=== PATIENT | female | born 1965 ===

== ENCOUNTER 2018-05-31 12:09 | Inpatient (IN) ==
[2018-05-31] MEDS ORDERED: PROMETHAZINE 25 MG TABLET PO PRN (12:23)
[2018-05-31] MEDS ORDERED: MAGNESIUM HYDROXIDE SUSP 30 ML UDCUP PO PRN (12:23)
[2018-05-31] MEDS ORDERED: ONDANSETRON 4 MG/2 ML VIAL IV PRN (12:23)
[2018-05-31] MEDS ORDERED: ZALEPLON 5 MG CAPSULE PO PRN (12:23)
[2018-05-31 13:59] LABS: Basophils % 0.2 % (0.0-0.8); Eosinophils % 0.9 % (0.00-10.9); Hemoglobin 13.1 GM/DL (12.0-16.0); Immature Granulocytes % 0.2 %; Immature Granulocytes Absolute 0.01 #; Lymphocytes # 1.7 10*3/uL (1.4-4.0); Lymphocytes % 38.4 % (21.3-54.2); Mean Corpuscular HGB Conc 34.5 GM/DL (32-36); Mean Corpuscular Hemoglobin 30 PG (27-34); Mean Corpuscular Volume 87.8 FL (87-102); Mean Platelet Volume 9.2 FL (9.6-12.0); Monocytes # 0.3 10*3/uL (0.11-0.8); Monocytes % 7.1 % (1.7-12.7); Neutrophils # 2.4 10*3/uL (1.4-7.4); Neutrophils % 53.2 % (38.7-73.9); Platelet Count 279 T/CUMM (130-400); Red Blood Count 4.33 MC/CUMM (3.8-5.5); Red Cell Distribution Width 12.6 % (9.3-17.3); White Blood Count 4.5 T/CUMM (4-12)
[2018-05-31 14:13] LABS: PT Patient Result 10.5 SECS
[2018-05-31 14:28] LABS: Albumin 3.4 G/DL (3.4-5.0); Bilirubin,Total 1.5 MG/DL (0.2-1.0); Calcium 8.7 MG/DL (8.5-10.1); Osmolality,Calculated 275.5 MOS/KG (273-304); Potassium 3.1 MMOL/L (3.5-5.1); Total Protein 6.9 G/DL (6.4-8.3)
[2018-05-31 16:42] LABS: Apearance,Urine CLEAR (Clear); Bilirubin,Urine Negative (Negative); Blood, Urine Negative (Negative); Glucose,Urine (UA) Negative (Negative); Ketones,Urine Negative (Negative); Nitrite,Urine Negative (Negative); Protein,Urine Negative; Squamous Epithelial Cell,Urine Occasional /HPF (0-10); Urine Color Straw (Yellow); Urine Specific Gravity 1.014 (1.001-1.035); Urine Urobilinogen < 2.0 EU/DL (0.2-1.0); WBC,Urine 2 /HPF (0-6)
[2018-05-31] MEDS: ACETAMINOPHEN 325 MG TABLET PO PRN (17:06)
[2018-05-31] MEDS: DEXTROSE 5% LACTATED RINGERS 1,000 ML IV SCH (17:06)
[2018-05-31] MEDS: MIRTAZAPINE 15 MG TABLET PO SCH (22:16)
[2018-05-31] MEDS: PANTOPRAZOLE 40 MG VIAL IV SCH (22:16)
[2018-06-01] MEDS: DEXTROSE 5% LACTATED RINGERS 1,000 ML IV SCH ×4 (01:23→22:15)
[2018-06-01] MEDS: POTASSIUM CHLORIDE RIDER 10 MEQ in PREMIX 1 EACH IV SCH ×4 (07:17→13:17)
[2018-06-01] MEDS ORDERED: GLUCAGON 1 MG VIAL IM PRN ×2 (07:48→07:51)
[2018-06-01] MEDS ORDERED: DEXTROSE 50% 25 GM/50 ML VIAL IV PRN ×2 (07:48→07:51)
[2018-06-01] MEDS: LISINOPRIL 10 MG TABLET PO SCH (09:57)
[2018-06-01] MEDS: PANTOPRAZOLE 40 MG VIAL IV SCH ×2 (09:57→22:13)
[2018-06-01] MEDS ORDERED: LIDOCAINE 100 MG/5 ML SYRINGE ONE (10:00)
[2018-06-01] MEDS ORDERED: PROPOFOL 200 MG/20 ML VIAL IV ONE (10:00)
[2018-06-01] MEDS ORDERED: INSULIN LISPRO 100 UNIT/ML SUBCUT SCH (11:30)
[2018-06-01] MEDS: INSULIN LISPRO 100 UNIT/ML SUBCUT SCH ×3 (12:55→20:58)
[2018-06-01] MEDS: MIRTAZAPINE 15 MG TABLET PO SCH (22:13)
[2018-06-02 05:08] LABS: Free T4 (Free Thyroxine) 1.41 NG/DL (0.76-1.46); Thyroid Stimulating Hormone 1.05 uIU/ml (0.358-3.74)
[2018-06-02 08:35] LABS: Basophils % 0.2 % (0.0-0.8); Eosinophils # 0.1 10*3/uL (0.0-0.87); Eosinophils % 1.5 % (0.00-10.9); Hematocrit 34.5 VOL% (35.7-47.0); Hemoglobin 11.8 GM/DL (12.0-16.0); Immature Granulocytes % 0.2 %; Immature Granulocytes Absolute 0.01 #; Lymphocytes # 1.6 10*3/uL (1.4-4.0); Lymphocytes % 35.3 % (21.3-54.2); Mean Corpuscular HGB Conc 34.2 GM/DL (32-36); Mean Corpuscular Hemoglobin 30 PG (27-34); Mean Corpuscular Volume 88.5 FL (87-102); Mean Platelet Volume 9.6 FL (9.6-12.0); Monocytes # 0.3 10*3/uL (0.11-0.8); Monocytes % 7.1 % (1.7-12.7); Neutrophils # 2.6 10*3/uL (1.4-7.4); Neutrophils % 55.7 % (38.7-73.9); Platelet Count 229 T/CUMM (130-400); Red Cell Distribution Width 12.6 % (9.3-17.3); White Blood Count 4.7 T/CUMM (4-12)
[2018-06-02 08:54] LABS: Calcium 8.4 MG/DL (8.5-10.1); Osmolality,Calculated 284.8 MOS/KG (273-304); Potassium 4.2 MMOL/L (3.5-5.1)
[2018-06-02] MEDS ORDERED: MAGNESIUM SULF RIDER 2 GM in PREMIX 1 EACH IV ONE (09:08)
[2018-06-02] MEDS: INSULIN LISPRO 100 UNIT/ML SUBCUT SCH ×4 (11:34→21:22)
[2018-06-02] MEDS: PANTOPRAZOLE 40 MG VIAL IV SCH ×2 (11:35→21:18)
[2018-06-02] MEDS: DEXTROSE 5% LACTATED RINGERS 1,000 ML IV SCH ×3 (12:44→21:17)
[2018-06-02] MEDS ORDERED: DEXTROSE 50% 25 GM/50 ML VIAL IV PRN (12:51)
[2018-06-02] MEDS ORDERED: GLUCAGON 1 MG VIAL IM PRN (12:51)
[2018-06-02] MEDS: LISINOPRIL 10 MG TABLET PO SCH ×2 (12:53→21:18)
[2018-06-02 16:49] LABS: Apearance,Urine CLEAR (Clear); Bacteria,Urine Occasional /HPF (Few); Bilirubin,Urine Negative (Negative); Blood, Urine Negative (Negative); Glucose,Urine (UA) Negative (Negative); Ketones,Urine Negative (Negative); Mucus,Urine Occasional /LPF (Occasional); Nitrite,Urine Negative (Negative); Protein,Urine Negative; RBC,Urine <1 /HPF (0-4); Urine Color Yellow (Yellow); Urine Specific Gravity 1.008 (1.001-1.035); WBC,Urine 3 /HPF (0-6)
[2018-06-02] MEDS: METOCLOPRAMIDE 10 MG/2 ML VIAL IV SCH (17:50)
[2018-06-02] MEDS: MIRTAZAPINE 15 MG TABLET PO SCH (21:17)
[2018-06-03] MEDS: METOCLOPRAMIDE 10 MG/2 ML VIAL IV SCH ×4 (01:38→20:45)
[2018-06-03] MEDS: DEXTROSE 5% LACTATED RINGERS 1,000 ML IV SCH ×2 (04:35→22:04)
[2018-06-03 06:18] LABS: Basophils % 0.2 % (0.0-0.8); Eosinophils # 0.1 10*3/uL (0.0-0.87); Eosinophils % 2.2 % (0.00-10.9); Hematocrit 32.8 VOL% (35.7-47.0); Hemoglobin 11.2 GM/DL (12.0-16.0); Immature Granulocytes % 0.4 %; Immature Granulocytes Absolute 0.02 #; Lymphocytes # 1.7 10*3/uL (1.4-4.0); Lymphocytes % 33.4 % (21.3-54.2); Mean Corpuscular HGB Conc 34.1 GM/DL (32-36); Mean Corpuscular Hemoglobin 30 PG (27-34); Mean Corpuscular Volume 88.6 FL (87-102); Mean Platelet Volume 9.8 FL (9.6-12.0); Monocytes # 0.3 10*3/uL (0.11-0.8); Monocytes % 6.7 % (1.7-12.7); Neutrophils # 2.9 10*3/uL (1.4-7.4); Neutrophils % 57.1 % (38.7-73.9); Platelet Count 225 T/CUMM (130-400); Red Cell Distribution Width 12.3 % (9.3-17.3); White Blood Count 5.1 T/CUMM (4-12)
[2018-06-03 06:30] LABS: Osmolality,Calculated 288.7 MOS/KG (273-304); Potassium 3.5 MMOL/L (3.5-5.1)
[2018-06-03] MEDS: INSULIN LISPRO 100 UNIT/ML SUBCUT SCH ×3 (07:15→20:48)
[2018-06-03] MEDS: PANTOPRAZOLE 40 MG VIAL IV SCH ×2 (09:32→20:37)
[2018-06-03] MEDS: LISINOPRIL 10 MG TABLET PO SCH ×2 (09:32→20:38)
[2018-06-03 13:10] LABS: Cancer Antigen 19-9 4.2 U/ML (0-37); Carcinoembryonic Antigen 1.1 NG/ML (0.0-5.0)
[2018-06-03 19:51] LABS: TB2 Ag Minus Result 0 IU/mL
[2018-06-03] MEDS: ACETAMINOPHEN 325 MG TABLET PO PRN (20:37)
[2018-06-03] MEDS: MAGNESIUM CHLORIDE 64 MG TABLET PO SCH (20:37)
[2018-06-03] MEDS: MIRTAZAPINE 15 MG TABLET PO SCH (20:37)
[2018-06-04] MEDS: METOCLOPRAMIDE 10 MG/2 ML VIAL IV SCH ×2 (01:06→06:36)
[2018-06-04 05:09] LABS: Calcium 8.2 MG/DL (8.5-10.1); Osmolality,Calculated 279.4 MOS/KG (273-304); Potassium 3.7 MMOL/L (3.5-5.1)
[2018-06-04] MEDS: INSULIN LISPRO 100 UNIT/ML SUBCUT SCH ×4 (07:51→22:32)
[2018-06-04] MEDS ORDERED: MAGNESIUM SULF RIDER 2 GM in PREMIX 1 EACH IV ONE (07:53)
[2018-06-04] MEDS: LISINOPRIL 10 MG TABLET PO SCH ×2 (08:23→22:31)
[2018-06-04] MEDS: MAGNESIUM CHLORIDE 64 MG TABLET PO SCH ×2 (08:23→22:31)
[2018-06-04] MEDS: METOCLOPRAMIDE 10 MG/10 ML UDCUP PO SCH ×3 (11:13→22:30)
[2018-06-04] MEDS: PANTOPRAZOLE 40 MG TABLET PO SCH (18:12)
[2018-06-04] MEDS: MIRTAZAPINE 15 MG TABLET PO SCH (22:31)
[2018-06-05 05:40] LABS: Calcium 7.9 MG/DL (8.5-10.1); Osmolality,Calculated 281.3 MOS/KG (273-304); Potassium 3.6 MMOL/L (3.5-5.1)
[2018-06-05] MEDS: PANTOPRAZOLE 40 MG TABLET PO SCH ×2 (06:52→18:03)
[2018-06-05] MEDS: INSULIN LISPRO 100 UNIT/ML SUBCUT SCH ×4 (07:50→23:21)
[2018-06-05] MEDS: LISINOPRIL 10 MG TABLET PO SCH ×2 (08:15→21:48)
[2018-06-05] MEDS: METOCLOPRAMIDE 10 MG/10 ML UDCUP PO SCH ×4 (08:15→21:48)
[2018-06-05] MEDS: MAGNESIUM CHLORIDE 64 MG TABLET PO SCH (08:15)
[2018-06-05] MEDS: MIRTAZAPINE 15 MG TABLET PO SCH (21:48)
[2018-06-06] MEDS: MAGNESIUM CHLORIDE 64 MG TABLET PO SCH ×3 (00:19→21:48)
[2018-06-06 06:36] LABS: Calcium 8.2 MG/DL (8.5-10.1); Osmolality,Calculated 286.8 MOS/KG (273-304); Potassium 3.7 MMOL/L (3.5-5.1)
[2018-06-06] MEDS: PANTOPRAZOLE 40 MG TABLET PO SCH ×2 (06:44→18:18)
[2018-06-06] MEDS: INSULIN LISPRO 100 UNIT/ML SUBCUT SCH ×3 (07:50→15:40)
[2018-06-06] MEDS: LISINOPRIL 10 MG TABLET PO SCH ×2 (08:11→21:48)
[2018-06-06] MEDS: METOCLOPRAMIDE 10 MG/10 ML UDCUP PO SCH ×4 (08:12→21:48)
[2018-06-06] MEDS: MIRTAZAPINE 15 MG TABLET PO SCH (21:48)
[2018-06-07] MEDS: INSULIN LISPRO 100 UNIT/ML SUBCUT SCH ×5 (04:26→23:00)
[2018-06-07 05:32] LABS: Calcium 8.2 MG/DL (8.5-10.1); Osmolality,Calculated 279.4 MOS/KG (273-304); Potassium 3.8 MMOL/L (3.5-5.1)
[2018-06-07] MEDS ORDERED: CIPROFLOXACIN INJ 400 MG in PREMIX 1 EACH IV SCH ×2 (06:45→09:00)
[2018-06-07] MEDS: PANTOPRAZOLE 40 MG TABLET PO SCH ×3 (08:12→19:04)
[2018-06-07] MEDS: LISINOPRIL 10 MG TABLET PO SCH ×2 (08:59→22:57)
[2018-06-07] MEDS: METOCLOPRAMIDE 10 MG/10 ML UDCUP PO SCH ×4 (08:59→22:57)
[2018-06-07] MEDS: MAGNESIUM CHLORIDE 64 MG TABLET PO SCH ×2 (08:59→23:00)
[2018-06-07] MEDS: CIPROFLOXACIN 500 MG TABLET PO SCH (22:57)
[2018-06-07] MEDS: MIRTAZAPINE 15 MG TABLET PO SCH (22:57)
[2018-06-08] MEDS: PANTOPRAZOLE 40 MG TABLET PO SCH (06:05)
[2018-06-08 07:50] VITALS: BP 105/66
[2018-06-08] MEDS: MAGNESIUM CHLORIDE 64 MG TABLET PO SCH (08:03)
[2018-06-08] MEDS: METOCLOPRAMIDE 10 MG/10 ML UDCUP PO SCH (08:03)
[2018-06-08] MEDS: LISINOPRIL 10 MG TABLET PO SCH (08:04)
[2018-06-08] MEDS: CIPROFLOXACIN 500 MG TABLET PO SCH (08:04)
[2018-06-08] MEDS ORDERED: FLUCONAZOLE 100 MG TABLET PO SCH (09:00)
[2018-06-08] MEDS: INSULIN LISPRO 100 UNIT/ML SUBCUT SCH (11:11)
== END 2018-06-08 10:49 | disposition hospice, home (50) | DRG 641 ==
LOC: N.2W 12:09 → N.2EOUT 12:09 → N.2W 12:10 → N.5E 16:15 → UNDODISIN 06-08 10:49 → EDSTATUS 06-09 16:34
PROVIDERS: ADMIT Internal Medicine Gastroenterology; ATTEND Internal Medicine Gastroenterology